=== PATIENT | male | born 2000 | race Caucasian/White ===

== ENCOUNTER 2018-03-20 06:48 | Emergency (ER) | payer OTHER ==
[2018-03-20 07:12] VITALS: BP 129/82; PULSE 86; TEMP 98
--- NOTE | 2018-03-20 07:35 | ED ---
General Adult HPI - General Chief complaint: Fever Stated complaint: Fever Time Seen by Provider: 03/20/18 07:28 Source: patient, RN notes reviewed Mode of arrival: ambulatory Limitations: no limitations - History of Present Illness Initial comments: Patient 18-year-old male presenting to the emergency room today with a chief complaint of cough congestion that started yesterday. He states that tonight he was feeling hot and cold. Denies any recorded temperatures. Does not that he's been coughing and with positive sputum production as been brown in color. Patient does admit to feeling pretty congested this morning. He admits to a sore throat when he swallows. Denies any other complaints or symptoms. Patient denies any recent fever, shortness of breath, chest pain, back pain, abdominal pain, nausea or vomiting, numbness or tingling, headaches or visual changes, or any other complaints. - Related Data Previous Rx's Medication Instructions Recorded Albuterol Inhaler [Ventolin Hfa 1 - 2 puff INHALATION Q4-6H PRN #1 03/20/18 Inhaler] inhaler Azithromycin [Zithromax Z-pack] 0 mg PO DIRECTED #6 tab 03/20/18 Allergies Allergy/AdvReac Type Severity Reaction Status Date / Time No Known Allergies Allergy Verified 03/20/18 07:12 Review of Systems ROS Statement: Those systems with pertinent positive or pertinent negative responses have been documented in the HPI. ROS Other: All systems not noted in ROS Statement are negative. Past Medical History Additional Past Medical History / Comment(s): spinal meningitis History of Any Multi-Drug Resistant Organisms: None Reported Past Surgical History: Tonsillectomy Past Psychological History: ADD/ADHD Smoking Status: Current every day smoker Past Alcohol Use History: Occasional Past Drug Use History: Marijuana General Exam Limitations: no limitations General appearance: alert, in no apparent distress Head exam: Present: atraumatic, normocephalic, normal inspection Eye exam: Present: normal appearance, PERRL, EOMI. Absent: scleral icterus, conjunctival injection, periorbital swelling ENT exam: Present: normal exam, mucous membranes moist Neck exam: Present: normal inspection, full ROM. Absent: tenderness, meningismus Respiratory exam: Present: normal lung sounds bilaterally. Absent: respiratory distress, wheezes, rales, rhonchi, stridor Cardiovascular Exam: Present: regular rate, normal rhythm, normal heart sounds. Absent: systolic murmur, diastolic murmur, rubs, gallop, clicks Extremities exam: Present: normal inspection, full ROM, normal capillary refill. Absent: tenderness, pedal edema, joint swelling, calf tenderness Back exam: Present: normal inspection Neurological exam: Present: alert, oriented X3, CN II-XII intact Psychiatric exam: Present: normal affect, normal mood Skin exam: Present: warm, dry, intact, normal color. Absent: rash Course Vital Signs 03/20/18 07:09 Temperature 98.0 F Pulse Rate 86 Respiratory 16 Rate Blood Pressure 129/82 O2 Sat by Pulse 99 Oximetry Medical Decision Making - Medical Decision Making Chest x-ray reviewed as negative for any pneumonia. Patient be treated for bronchitis with Z-Jimy. He is advised follow-up over the next 2 days with family physician. Return here to the emergency room symptoms increase or worsen. Disposition Clinical Impression: Acute bronchitis Disposition: HOME SELF-CARE Condition: Good Instructions: Acute Bronchitis (ED) Additional Instructions: Please use medication as discussed. Please follow-up with family doctor in the next 2 days of symptoms have not improved. Please return to emergency room if the symptoms increase or worsen or for any other concerns. Prescriptions: Albuterol Inhaler [Ventolin Hfa Inhaler] 1 - 2 puff INHALATION Q4-6H PRN #1 inhaler PRN Reason: Cough Azithromycin [Zithromax Z-pack] 0 mg PO DIRECTED #6 tab Is patient prescribed a controlled substance at d/c from ED?: No Referrals: Melvin Garcia MD [Primary Care Provider] - 1-2 days Time of Disposition: 07:51
--- NOTE | 2018-03-20 07:45 | XR ---
EXAMINATION TYPE: XR chest 2V DATE OF EXAM: 03/20/2018 COMPARISON: Prior chest x-ray 1998 HISTORY: Cough and congestion TECHNIQUE: Frontal and lateral views of the chest are obtained. FINDINGS: There is no focal air space opacity, pleural effusion, or pneumothorax seen. The cardiac silhouette size is within normal limits. The osseous structures are intact. There is a gentle spina l curvature. Mild bronchial wall thickening. IMPRESSION: Correlate for bronchitis and follow-up as indicated.
[2018-03-20 08:03] VITALS: RESP 18
== END 2018-03-20 08:10 | disposition home or self-care (01) ==
LOC: EC 06:48
DX: J20.9 Acute bronchitis, unspecified (principal); F17.200 Nicotine dependence, unspecified, uncomplicated; Z90.89 Acquired absence of other organs
CPT/HCPCS: 71046; 99283

== ENCOUNTER 2020-10-01 17:06 | Emergency (ER) | payer OTHER ==
[2020-10-01 17:21] VITALS: BP 138/83; PULSE 67; RESP 20; TEMP 98.8
--- NOTE | 2020-10-01 17:58 | XR ---
Right shoulder HISTORY: Trauma and pain 3 views the right shoulder There is superior displacement of the distal clavicle in relation to the acromion. No evident fractur e. Sclerotic density in the acromion, humeral head may represent bone islands. Right lung apex as vis ualized is normal. There is no evident fracture. IMPRESSION: Acromioclavicular separation.
[2020-10-01] MEDS ORDERED: ACETAMINOPHEN TAB 500 MG TAB PO STA (18:42)
[2020-10-01] MEDS ORDERED: IBUPROFEN 600 MG TAB PO STA (18:42)
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
== END 2020-10-01 19:03 | disposition home or self-care (01) ==
LOC: EC 17:06
DX: S43.101A Unspecified dislocation of right acromioclavicular joint, initial encounter (principal); F90.9 Attention-deficit hyperactivity disorder, unspecified type; F17.200 Nicotine dependence, unspecified, uncomplicated; F12.90 Cannabis use, unspecified, uncomplicated; F14.90 Cocaine use, unspecified, uncomplicated; V29.00XA Motorcycle driver injured in collision with unspecified motor vehicles in nontraffic accident, initial encounter; Y92.410 Unspecified street and highway as the place of occurrence of the external cause
CPT/HCPCS: 99284